=== PATIENT | female | born 1950 | race American Indian/Alaskan Native ===

== ENCOUNTER 2018-04-16 14:43 | Emergency (ER) | payer SELFPAY ==
[2018-04-16] MEDS ORDERED: LASIX PO ONE (17:24)
[2018-04-16] MEDS ORDERED: MORPHINE IM ONE (17:28)
[2018-04-16] MEDS ORDERED: TESSALON PERLES PO ONE ×2 (17:29→20:03)
[2018-04-16] MEDS ORDERED: LIDOCAINE VISCOUS 2% PO ONE (17:29)
[2018-04-16] MEDS ORDERED: MORPHINE ONE (17:57)
[2018-04-16 18:36] LABS: Eosinophils # (Auto) 0.1 K/mm3 (0.0-0.4); Eosinophils % (Auto) 2.1 % (0.0-4.3); Hemoglobin 11.7 gm/dl (10.1-14.3); Lymphocytes # (Auto) 1.2 K/mm3 (1.2-5.4); Mean Corpuscular HGB Conc 32 % (30-34); Mean Corpuscular Hemoglobin 30 pg (28-32); Mean Corpuscular Volume 94 fl (79-97); Monocytes # (Auto) 0.5 K/mm3 (0.0-0.8); Monocytes % (Auto) 11.3 % (0.0-7.3); Platelet Count 161 K/mm3 (140-440); Red Blood Count 3.95 M/mm3 (3.65-5.03); Red Cell Distribution Width 16.1 % (13.2-15.2)
[2018-04-16 18:52] LABS: Alanine Aminotransferase 21 units/L (7-56); Albumin 3.9 g/dL (3.9-5); BUN/Creatinine Ratio 29; Blood Urea Nitrogen 32 mg/dL (7-17); Calcium 10.5 mg/dL (8.4-10.2); Hemolysis Index 7; Lipase 21 units/L (13-60)
--- NOTE | 2018-04-16 18:56 | XRay Report ---
FINAL REPORT EXAM: XR CHEST 1V AP HISTORY: chest pain TECHNIQUE: AP portable view of the chest. PRIORS: None. FINDINGS: Cardiac silhouette is moderately enlarged. There is central pulmonary vascular congestion. The interstitial markings are prominent consistent with pulmonary edema. There is no evidence of pleural effusion. The bones and soft tissues are unremarkable. IMPRESSION: Findings are consistent with acute CHF
[2018-04-16 19:49] VITALS: BP 114/57
--- NOTE | 2018-04-16 22:34 | Emergency Department Report ---
HPI - General Chief Complaint: Abdominal Pain Time Seen by Provider: 04/16/18 16:33 - HPI HPI: The patient is a 67-year-old female with a history of congestive heart failure, on hospice,and whom presents for evaluation of shortness of breath. The patient has a history of CHF. The patient reports dyspnea since 3 PM today, constant, mild in severity, exacerbated with lying down or physical activity, improved with sitting up. She also has secondary complaints of cough and chest congestion. ED Past Medical Hx - Past Medical History Previous Medical History?: Yes Hx Hypertension: Yes Hx Congestive Heart Failure: Yes Hx Diabetes: Yes Hx Arthritis: Yes Additional medical history: anxiety. sleep apnea. CPAP; BRONCHITIS,HOME O2 @ 2L - Surgical History Past Surgical History?: Yes Hx Breast Surgery: Yes (lump removed x 2) Additional Surgical History: x 1 - Social History Smoking Status: Never Smoker - Medications Home Medications: Home Medications Medication Instructions Recorded Confirmed Last Taken Type Aspirin [Aspirin TAB] 325 mg PO QDAY 07/30/13 06/12/15 06/11/15 History Carvedilol [Coreg] 6.25 mg PO BID 07/30/13 06/12/15 06/11/15 History Famotidine [Pepcid] 20 mg PO BID 07/30/13 06/12/15 06/11/15 History Gabapentin [Neurontin] 100 mg PO Q8H 07/30/13 06/12/15 06/11/15 History Loratadine [Claritin] 10 mg PO DAILY 07/30/13 06/12/15 06/11/15 History Losartan [Cozaar] 50 mg PO BID 07/30/13 06/12/15 06/11/15 History Potassium Chloride [K-Dur] 20 meq PO QDAY 07/30/13 06/12/15 06/11/15 History Simvastatin 20 mg PO QDAY 07/30/13 06/12/15 06/11/15 History Torsemide [Demadex] 50 mg PO BID 07/30/13 06/12/15 06/11/15 History Insulin NPH/Regular [NovoLIN 70/30] 75 units SQ AMHY 11/24/13 06/12/15 06/11/15 History HYDROcodone/APAP 5-325 [[place] 1 each PO Q6HR PRN #20 tablet 04/24/15 06/12/15/15 Rx 5/325] Ibuprofen [Motrin] 400 mg PO Q8H PRN #30 tablet 04/24/15 06/12/15 06/11/15 Rx ALBUTEROL Inhaler [ProAir HFA 2 puff IH QID PRN #1 inhalation 06/12/15 Unknown Rx Inhaler] Azithromycin [Zithromax TAB] 500 mg PO QDAY #7 tablet 06/12/15 Unknown Rx predniSONE [Deltasone] 50 mg PO QDAY #5 tab 06/12/15 Unknown Rx Furosemide [Lasix] 20 mg PO QDAY #30 tablet 04/16/18 Unknown Rx HYDROcodone/APAP 5-325 [[place] 1 each PO Q6HR PRN #10 tablet 04/16/18 Unknown Rx 5/325] Ondansetron [Zofran TAB] 4 mg PO Q8HR PRN #20 tablet 04/16/18 Unknown Rx ED Review of Systems ROS: Stated complaint: ABD PAIN Other details as noted in HPI Constitutional: denies: fever ENT: denies: throat or neck pain Respiratory: reports: cough, shortness of breath Cardiovascular: denies: chest pain Endocrine: denies unexplained weight loss or gain Gastrointestinal: denies: abdominal pain, nausea Genitourinary: denies: dysuria Musculoskeletal: denies: leg swelling Skin: denies: rash Neurological: denies: headache Hematological/Lymphatic: denies: easy bleeding or easy bruising Psych: denies sadness or hopelessness Physical Exam - Physical Exam Vital Signs: Vital Signs 04/16/18 04/16/18 04/16/18 15:34 19:00 19:27 Temperature 98.5 F 97.5 F L Pulse Rate 71 72 Respiratory 16 19 18 Rate Blood Pressure 113/70 114/57 [Left] O2 Sat by Pulse 97 99 100 Oximetry Physical Exam: General: well-nourished, well-developed, no acute distress Head: Normocephalic, atraumatic Eyes: normal sclera ENT: Mucous membranes are pink and moist Neck: trachea midline, neck supple, No neck stiffness, no cervical adenopathy Respiratory: Breath sounds equal bilaterally, no wheezing, rales, or rhonchi Cardio: S1 and S2 present, no murmurs, rubs, gallops, capillary refill is brisk Abdomen: Normoactive bowel sounds, soft abdomen, epigastric tenderness to palpation present, no rigidity, no guarding or rebound tenderness Chest WALL/Back: No tenderness to palpation of the chest wall, no CVA tenderness with percussion Musc: No pitting edema Skin: No rash Neuro: no facial drooping, normal speech Psych: Normal affect ED Course Vital Signs 04/16/18 04/16/18 04/16/18 15:34 19:00 19:27 Temperature 98.5 F 97.5 F L Pulse Rate 71 72 Respiratory 16 19 18 Rate Blood Pressure 113/70 114/57 [Left] O2 Sat by Pulse 97 99 100 Oximetry ED Medical Decision Making - Lab Data Result diagrams: 04/16/18 18:30 04/16/18 18:22 - Medical Decision Making The patient was seen and examined by myself. The patient is placed on a bus driver/monitor and continuous pulse ox. On initial evaluation, the patient was found to be in no distress. Evaluation orders were placed. X-rays of his pulmonary vessel congestion and cardiomegaly. EKG was negative for findings concerning for acute NE. The patient is given Lasix for treatment of her CHF and an IM dose of morphine for pain. Lab results revealed mildly elevated glucose 200, consistent with history of diabetes, and otherwise labs were unrevealing. The patient was reevaluated and reported symptoms were improved. She requested transfer to hospice. The patient's hospitalist inpatient facility was contacted and agreed to set the patient for admission. The patient was transferred to inpatient hospice. Critical care attestation.: If time is entered above; I have spent that time in minutes in the direct care of this critically ill patient, excluding procedure time. ED Disposition Clinical Impression: Acute hyperglycemia, Acute generalized abdominal pain, Dehydration Acute CHF (congestive heart failure) Qualifiers: Heart failure type: systolic Qualified Code(s): I50.21 - Acute systolic ( congestive) heart failure Disposition: DC/TX-70 ANOTHER TYPE HLTHCARE Is pt being admited?: No Does the pt Need Aspirin: No Condition: Stable Instructions: Abdominal Pain (ED), Heart Failure (ED), Diabetic Hyperglycemia ( ED) Referrals: PRIMARY CARE, [Primary Care Provider] - 3-5 Days Time of Disposition: 20:54
== END 2018-04-16 21:41 | disposition other institution (70) ==
LOC: ED 14:43
DX: I11.0 Hypertensive heart disease with heart failure (principal); I50.9 Heart failure, unspecified; E11.65 Type 2 diabetes mellitus with hyperglycemia; R10.84 Generalized abdominal pain; E86.0 Dehydration; M19.90 Unspecified osteoarthritis, unspecified site; Z79.4 Long term (current) use of insulin
CPT/HCPCS: 36415; 71045; 80053; 83690; 85025; 93005; 93010; 96372; 99284; J2270